=== PATIENT | male | born 1990 | race African-American/Black ===

== ENCOUNTER 2017-10-05 17:34 | Inpatient (IN) | payer BC ==
[2017-10-05] MEDS: AMPICILLIN SOD/SULBACTAM SOD 3 GM in D5W MINI-BAG PLUS 100 ML IV (18:30)
[2017-10-05] MEDS: NORCO, ANEXSIA 5/325MG TABLET (HYDROcodone/ACETAMINOPHEN) PO (21:15)
[2017-10-05] MEDS ORDERED: NORCO, ANEXSIA 5/325MG TABLET (HYDROcodone/ACETAMINOPHEN) PO ×3 (21:15)
[2017-10-05] MEDS: CHLORHEXIDINE ORAL RINSE 0.12%/15ML 120ML BOTTLE SSP (22:45)
[2017-10-05] MEDS: IBUPROFEN 800 MG TAB PO (22:52)
[2017-10-06] MEDS: AMPICILLIN SOD/SULBACTAM SOD 3 GM in D5W MINI-BAG PLUS 100 ML IV ×4 (02:38→20:05)
[2017-10-06] MEDS: NORCO, ANEXSIA 5/325MG TABLET (HYDROcodone/ACETAMINOPHEN) PO ×4 (05:44→22:49)
[2017-10-06] MEDS: CHLORHEXIDINE ORAL RINSE 0.12%/15ML 120ML BOTTLE SSP ×3 (08:22→20:05)
[2017-10-06] MEDS ORDERED: ROCURONIUM BROMIDE 50 MG/5 ML VIAL As Ordered (12:19)
[2017-10-06] MEDS ORDERED: PROPOFOL 200 MG/20 ML VIAL As Ordered (12:19)
[2017-10-06] MEDS ORDERED: dexameTHASONE 4 MG/ML 1ML VIAL (J1100) As Ordered ×2 (12:19→14:55)
[2017-10-06] MEDS ORDERED: MIDAZOLAM INJ 2 MG/2 ML VIAL (J2250) As Ordered (12:19)
[2017-10-06] MEDS ORDERED: fentaNYL 250 MCG/5 ML INJECTION (J3010) As Ordered (12:19)
[2017-10-06] MEDS ORDERED: LIDOCAINE 2% INJ 100 MG/5 ML SDV (FOR ANES.) As Ordered (14:31)
[2017-10-06] MEDS ORDERED: ONDANSETRON 4MG/2ML VIAL (J2405) As Ordered (14:31)
[2017-10-06] MEDS: PHENYLEPHRINE 0.5% NASAL SPRAY 15 ML As Ordered (14:40)
[2017-10-06] MEDS: LIDOCAINE 2% W/ EPINEPHRINE 1.7 ML DENTAL INJ As Ordered (15:00)
[2017-10-06] MEDS ORDERED: HYDROmorphone HCL 2 MG/ML 1ML VIAL (J1170) As Ordered (15:14)
[2017-10-06] MEDS ORDERED: NEOSTIGMINE 10 MG/10 ML VIAL (J2710) As Ordered (15:16)
[2017-10-06] MEDS ORDERED: GLYCOPYRROLATE INJ 0.2 MG/ML 2 ML VIAL As Ordered (15:16)
[2017-10-06] MEDS ORDERED: METOCLOPRAMIDE INJ 10MG/2ML VIAL (J2765) As Ordered (15:17)
[2017-10-06] MEDS ORDERED: KETOROLAC 60 MG/2 ML VIAL (J1885) As Ordered (15:17)
[2017-10-06] MEDS: CHLORHEXIDINE GLUCONATE 0.12 % 15ML UDC (PERIDEX ORAL RINSE) As Ordered (15:50)
[2017-10-06] MEDS ORDERED: PERCOCET 5MG/325MG TAB PO (16:45)
[2017-10-06] MEDS ORDERED: HYDROmorphone HCL 1 MG/ML SYRINGE (J1170) IV (16:45)
[2017-10-06] MEDS: LR 1,000 ML IV (16:45)
[2017-10-06] MEDS ORDERED: fentaNYL 100 MCG/2 ML INJECTION (J3010) IV (16:45)
[2017-10-06] MEDS: MORPHINE 4 MG/ML 1ML VIAL (J2270) IV (20:20)
[2017-10-06] MEDS: IBUPROFEN 800 MG TAB PO (21:28)
[2017-10-07] MEDS: AMPICILLIN SOD/SULBACTAM SOD 3 GM in D5W MINI-BAG PLUS 100 ML IV ×2 (01:48→08:22)
[2017-10-07] MEDS: MORPHINE 4 MG/ML 1ML VIAL (J2270) IV (01:49)
[2017-10-07] MEDS: NORCO, ANEXSIA 5/325MG TABLET (HYDROcodone/ACETAMINOPHEN) PO ×2 (05:11→09:27)
[2017-10-07] MEDS: IBUPROFEN 800 MG TAB PO (05:12)
[2017-10-07] MEDS: CHLORHEXIDINE ORAL RINSE 0.12%/15ML 120ML BOTTLE SSP (09:00)
== END 2017-10-07 11:00 | disposition home or self-care (01) | DRG 92 ==
LOC: M ED 17:34 → M ED INP 18:15 → M PED 19:58
PROC: 0NSV04Z Reposition Left Mandible with Internal Fixation Device, Open Approach (ICD-10-PCS; principal; 2017-10-06 14:30)
PROC: 0CTX0Z0 Resection of Lower Tooth, Single, Open Approach (ICD-10-PCS; 2017-10-06 14:30)
DX: S02.652A Fracture of angle of left mandible, initial encounter for closed fracture (principal); K00.6 Disturbances in tooth eruption; W50.0XXA Accidental hit or strike by another person, initial encounter; Y92.009 Unspecified place in unspecified non-institutional (private) residence as the place of occurrence of the external cause